=== PATIENT | male | born 2000 | race Two or more races ===

== ENCOUNTER 2024-06-10 18:08 | Emergency (ER) | payer BC, SELFPAY ==
[2024-06-10 18:10] VITALS: BMI 25.1
[2024-06-10 18:25] VITALS: BP 154/87; PULSE 76; RESP 18; TEMP 37.1; O2SAT 98; BMI 53.1
--- NOTE | 2024-06-10 18:25 | PD.EDRME ---
Rapid Medical Screening Exam [facility] Arrival date/time: 06/10/24 18:08 Chief Complaint: Abdominal Pain Time Seen by Provider: 06/10/24 18:23 RM Narrative: 23yo male presents to the ED for a chief complaint of burning epigastric pain x August of this year. Patient states his pain significantly worsened today and has been unable to urinate. He reports associated urinary urgency and lower back pain. He states he was on antibiotics, but reports they did not alleviate his symptoms, stating his pain was in my bladder but is now towards the epigastric area. Denies any fevers or weight loss.
--- NOTE | 2024-06-10 18:32 | XR_ITS ---
Examination: CT chest with intravenous contrast CT abdomen with intravenous contrast CT pelvis with intravenous contrast 2-D coronal and sagittal reconstructions Time of exam: June 10, 2024 2109 hrs. Indications: Bladder epigastric pain beginning 2 days ago CTDI: vol (mGy) : 17.15 DLP: (mGycm): 827 Technique: Multiple axial images of the chest, abdomen and pelvis with intravenous contrast, 3.0 mm slice thickness. Images obtained post intravenous injection Isovue 370 60 cc 2-D sagittal and coronal reconstructions. Low dose protocols were performed. One or more of the following dose reduction techniques were used; automated exposure control, adjustment of the mA and/or KV according to patient size, use of iterative reconstruction technique. Findings: No thoracic aortic aneurysmal dilatation Pulmonary artery segments are not enlarged No paratracheal tracheobronchial or bronchopulmonary adenopathy No pneumonia or pulmonary edema or pleural disease No liver or splenic lesion Contracted gallbladder Normal pancreas normal adrenal glands No renal or ureteral calculi, no hydronephrosis Aorta normal size Normal appendix No bowel obstruction No bladder mass or bladder wall thickening Normal prostate Intact osseous structures Impression: No acute process in the chest abdomen or pelvis Given the patient's presentation, consider hepatobiliary sonography follow-up
--- NOTE | 2024-06-10 18:35 | EKG_ITS ---
[facility] Test Date: 2024-06-10 Pat Name: ESTEFANY PANTOJA Department: Room: - Gender: Male Family Service Caseworker: : 2000 Requested By: Alie Atsudillo Order Number: [id number] Reading MD: Alie Astudillo Measurements Intervals [place] Rate: 84 P: 77 SC: 157 QRS: -9 QRSD: 97 T: 63 QT: 393 QTc: 467 Interpretive Statements SINUS RHYTHM INDETERMINATE AXIS ATYPICAL ECG No previous ECG available for comparison /store/S0/[id number]/[id number].pdf
[2024-06-10 18:51] LABS: Collection Type, Urine Voided; WBC,Urine 0 /hpf (0-5)
[2024-06-10 19:14] LABS: Lactate (Lactic Acid) 1.1 mMol/L (0.4-2.0)
[2024-06-10 19:17] LABS: Basophils # (Auto) 0.1 Thou/mm3 (0.0-0.2); Basophils % (Auto) 1 % (0-2.5); Eosinophils # (Auto) 0.3 Thou/mm3 (0.0-0.5); Eosinophils % (Auto) 3 % (0-10); Hematocrit 43.1 % (41.0-53.0); Immature Granulocytes % (Auto) 0 % (0-0); Immature Granulocytes Auto 0.02 Thou/mm3 (0.00-0.00); Lymphocytes # (Auto) 2.5 Thou/mm3 (1.0-4.8); Lymphocytes % (Auto) 27 % (10-50); Mean Corpuscular HGB Conc 34.8 g/dl (31.0-37.0); Mean Corpuscular Hemoglobin 30.4 pg (25.0-35.0); Mean Corpuscular Volume 87 fL (80-100); Monocytes # (Auto) 0.6 Thou/mm3 (0.0-0.8); Monocytes % (Auto) 7 % (0-12); Neutrophils # (Auto) 5.6 Thou/mm3 (1.8-7.7); Neutrophils % (Auto) 62 % (37-80); Nucleated Red Blood Cell % 0 /100 WBC (0); Platelet Count 273 Thou/mm3 (140-440); RDW Standard Deviation 41.1 fL (35.1-43.9); Red Blood Count 4.94 Miln/mm3 (4.50-5.90); White Blood Count 9.1 Thou/mm3 (3.8-10.6)
[2024-06-10 19:21] LABS: Bilirubin,Urine Negative (Negative); Blood,Urine Negative (Negative); Clarity,Urine Clear (Clear/Hazy); Color,Urine Lt-Yellow (Lt Yel-Yel); Culture Indicated,Urine Not Indicated; Glucose, Urine Negative (Negative); Hyaline Casts,Urine < 1 /hpf (0-1); Ketones,Urine Negative (Negative); Leukocyte Esterase,Urine Negative (Negative); Nitrite,Urine Negative (Negative); Protein,Urine Negative (Neg - Trace); RBC,Urine 1 /hpf (0-3); Specific Gravity,Urine 1.026 (1.001-1.035); Squamous Epithelial Cell,Urine 1 /hpf (0-5); Urobilinogen,Urine Negative mg/dL (0.0-1.0)
--- NOTE | 2024-06-10 19:46 | PC.NURSE ---
Addendum entered by Babs Molina RN 06/10/24 20:00: BRENT ALFORD CHAIRLIFT OPERATOR ALSO MADE AWARE. NO NEW ORDERS AT THIS TIME. Original Note: BLADDER SCAN PERFORMED; PT'S RESULT 62ML. MD TERRELL MADE AWARE.
[2024-06-10 20:03] LABS: Prostate Specific Antigen 0.53 ng/mL (0-4.00)
[2024-06-10 20:13] LABS: Alanine Aminotransferase 25 U/L (10-49); Albumin, Serum 5.5 gm/dL (3.5-5.0); Alkaline Phosphatase 68 U/L (46-116); Anion Gap 10 (7-16); Aspartate Amino Transferase 17 U/L (0-34); BUN/Creatinine Ratio 14 Ratio (12-20); Bilirubin,Total 0.4 mg/dL (0.3-1.2); Blood Urea Nitrogen 14 mg/dL (9-23); C-Reactive Protein < 0.4 mg/dL (0.0-0.9); Calcium 10.1 mg/dL (8.3-10.6); Calcium (Corrected) 10.1 mg/dL (8.5-10.1); Chloride 103 mMol/L (98-107); Estimated Creatinine Clearance 182.6 mL/min (>60); Globulin 2.7 gm/dL (2.3-3.5); Glucose 94 mg/dL (74-106); Osmolality,Calculated 276 (275-295); Sodium 138 mMol/L (136-145); Total Protein 8.2 gm/dL (5.7-8.2); eGFR > 60 See Note
--- NOTE | 2024-06-10 21:37 | XR_ITS ---
Examination: Retroperitoneal ultrasound, complete Technique: Multiple high resolution grayscale images of the retroperitoneum obtained, including kidneys and bladder. Exam date and time:June 10, 2024 1117 hrs. Indications: Urinary retention pelvic pressure 4 months Findings: Right kidney 10.5 x 6.1 x 4.7 cm renal cortex 1.3 cm Left kidney 11.2 x 6.7 x 4.6 cm cortex 2.3 cm Mild left renal parenchymal scar formation, increased arterial flow to the left kidney No hydronephrosis No bladder mass or bladder calculi Bladder prevoid volume 49 cc Prostate 4.6 x 2.6 x 3.5 cm no prostate nodules Impression: Mild renal parenchymal scar formation, mild increased arterial flow to the left kidney, consider urinary tract infection
[2024-06-10 23:40] VITALS: BP 142/88; PULSE 82; RESP 18; TEMP 37.2; O2SAT 99
--- NOTE | 2024-06-11 02:01 | PD.EDABDPN ---
ED Abdominal Pain RME/HPI General Chief Complaint: Abdominal Pain Stated complaint: EPIGASTRIC PAIN X2 DAYS Time seen by provider: 06/10/24 18:23 Arrival date/time: 06/10/24 18:08 Limitations: no limitations RME / HPI RME / HPI narrative: Dr. Manrique's Main ED Evaluation: 23yo male presents to the ED for a chief complaint of burning epigastric pain x August of this year. Patient states his pain significantly worsened today and has been unable to urinate. He reports associated urinary urgency and lower back pain. He states he was on antibiotics, but reports they did not alleviate his symptoms, stating his pain was in my bladder but is now towards the epigastric area. Denies any fevers or weight loss. Denies any N/V or any other associated symptoms. No known allergies. Related Data Allergies Allergy/AdvReac Type Severity Reaction Status Date / Time No Known Allergies Allergy Verified 06/10/24 18:09 Review of Systems Review of Systems Systems Reviewed: All systems reviewed, normal except as documented Past Medical History Past Medical History CARDIAC: Negative Cardiac Disorders RESPIRATORY: Positive Asthma GENITOURINARY: Negative Renal Disease ENDOCRINE: Negative Diabetes Mellitus Type 2 HEMATOLOGIC: Negative Sickle Cell Disease Social History SMOKING STATUS: Never smoker ED Exam General Limitations: Present no limitations General appearance: Present alert and in no apparent distress Head Head exam: Present atraumatic Eye Eye exam: Present normal appearance, PERRL and EOMI ENT ENT exam: Present normal exam, normal oropharynx and mucous membranes moist Neck Neck exam: Present normal inspection, full ROM and trachea midline Chest Chest inspection: Present normal inspection and symmetric chest wall rise Respiratory Respiratory exam: Present normal lung sounds bilaterally Cardiovascular Cardiovascular exam: Present regular rate, normal rhythm and normal heart sounds Abdominal Exam Abdominal exam: Present soft and normal bowel sounds Extremities Exam Extremities exam: Present normal inspection and full ROM Back Exam Back exam: Present normal inspection and full ROM Neurological Exam Neurological exam: Present alert, oriented X3 and CN II-XII intact Psychiatric Psychiatric exam: Present normal affect and normal mood Skin Skin exam: Present warm, dry, intact and normal color Course Quality Measures none Orders Category Date Time Status CT Screening NOW Care 06/10/24 18:32 Active EKG (ED ONLY) *Do not use* NOW Care 06/10/24 18:35 Completed Miscellaneous Nursing Order X1 Care 06/10/24 18:[address] chest abdomen pelvis w Stat Exams 06/10/24 18:32 Completed EKG (ED Only) Stat Exams 06/10/24 18:35 Draft US retroperitoneal comp Stat Exams 06/10/24 21:37 Completed CBC Stat Lab 06/10/24 19:00 Completed CMP [Comprehensive Metabolic Panel] Stat Lab 06/10/24 19:00 Completed CRP [C-Reactive Protein] Stat Lab 06/10/24 19:00 Completed Lactic Acid [Lactate (Lactic Acid)] Stat Lab 06/10/24 19:00 Completed PSA [Prostate Specific Antigen] Stat Lab 06/10/24 19:00 Completed Urinalysis, C/S if Indicated Stat Lab 06/10/24 18:42 Completed Vital Signs Vital signs: Vital Signs Temperature 98.7 F 06/10/24 18:25 Pulse Rate 76 06/10/24 18:25 Respiratory Rate 18 06/10/24 18:25 Blood Pressure 154/87 H 06/10/24 18:25 Pulse Oximetry (%) 98 06/10/24 18:25 Oxygen Delivery Method Room Air 06/10/24 18:25 Pulse ox is 98% on room air, which is normal according to my interpretation. Abdominal Pain MDM Patient data External records reviewed:: [facility] previous records (Per chart review, patient has no previous ED visits or admissions to this facility.) Clinical information provided by:: patient Social determinants that could affect healthcare access:: none Patient has the following chronic illnesses:: asthma How is presenting disease/condition affected by chronic disease/condition?: uneffected by Evaluation data The following diagnostics were reviewed and interpreted by me:: lab results and radiology exam(s) Lab and/or radiology exams considered but not ordered:: none Interpretation Summary: CBC is normal. CMP is normal, Lactic Acid is normal, UA is unremarkable, according to my interpretation. EKG done at 2158, NSR, rate of 84, normal intervals, normal axis, no ST elevations or depressions, no STEMI, according to my interpretation. ----- I have personally reviewed the radiology data and agree with the radiologist's interpretation below: [facility] Report Signed Patient: ESTEFANY PANTOJA [facility] Record#: [id number] Birthdate: 2000 Age/Sex: 23 / M Location: [facility] Attending Dr: Ordering Physician: Alie Manrique MD Date of Service: 06/10/24 Procedure(s): CT chest abdomen pelvis w Accession Number(s): [id number] cc: Kofi Balderas MD; Isacc Barr MD; Alie Manrique MD~ Examination: CT chest with intravenous contrast CT abdomen with intravenous contrast CT pelvis with intravenous contrast 2-D coronal and sagittal reconstructions Time of exam: June 10, 2024 2109 hrs. Indications: Bladder epigastric pain beginning 2 days ago CTDI: vol (mGy) : 17.15 DLP: (mGycm): 827 Technique: Multiple axial images of the chest, abdomen and pelvis with intravenous contrast, 3.0 mm slice thickness. Images obtained post intravenous injection Isovue 370 60 cc 2-D sagittal and coronal reconstructions. Low dose protocols were performed. One or more of the following dose reduction techniques were used; automated exposure control, adjustment of the mA and/or KV according to patient size, use of iterative reconstruction technique. Findings: No thoracic aortic aneurysmal dilatation Pulmonary artery segments are not enlarged No paratracheal tracheobronchial or bronchopulmonary adenopathy No pneumonia or pulmonary edema or pleural disease No liver or splenic lesion Contracted gallbladder Normal pancreas normal adrenal glands No renal or ureteral calculi, no hydronephrosis Aorta normal size Normal appendix No bowel obstruction No bladder mass or bladder wall thickening Normal prostate Intact osseous structures Impression: No acute process in the chest abdomen or pelvis Given the patient's presentation, consider hepatobiliary sonography follow-up Dictated By: Isacc Barr MD Signed By: <Electronically signed by Isacc Barr MD in [place]> 06/10/24 2453 [facility] Report Signed Patient: ESTEFANY PANTOJA [facility] Record#: [id number] Birthdate: 2000 Age/Sex: 23 / M Location: [facility] Attending Dr: Ordering Physician: Alie Manrique MD Date of Service: 06/10/24 Procedure(s): US retroperitoneal comp Accession Number(s): [id number] cc: Kofi Balderas MD; Isacc Barr MD; Alie Manrique MD~ Examination: Retroperitoneal ultrasound, complete Technique: Multiple high resolution grayscale images of the retroperitoneum obtained, including kidneys and bladder. Exam date and time:June 10, 2024 1117 hrs. Indications: Urinary retention pelvic pressure 4 months Findings: Right kidney 10.5 x 6.1 x 4.7 cm renal cortex 1.3 cm Left kidney 11.2 x 6.7 x 4.6 cm cortex 2.3 cm Mild left renal parenchymal scar formation, increased arterial flow to the left kidney No hydronephrosis No bladder mass or bladder calculi Bladder prevoid volume 49 cc Prostate 4.6 x 2.6 x 3.5 cm no prostate nodules Impression: Mild renal parenchymal scar formation, mild increased arterial flow to the left kidney, consider urinary tract infection Dictated By: Isacc Barr MD Signed By: <Electronically signed by Isacc Barr MD in OV> 06/11/24 0002 Medications / Prescriptions Medications or Prescriptions considered but not ordered:: none Medication administrations:: see above, if any Consultations Consultation(s) initiated? (list below): No Diagnosis Differential diagnosis abdominal pain: pancreatitis and other (UTI, cystitis, pyelonephritis) Most likely diagnosis given after review of the tests above:: see below Admission Indicated Admission indicated?: not indicated Admission Request Was there a request for admission?: No Disposition Plan Disposition Plan: Discharge Discharge Attestation Discharge Attestation: The patient and all family members were given an opportunity to ask questions and understood the discharge instructions. Discharge instructions specifically effects, indications for sooner follow up or return to the emergency department, and the expected course of current diagnosis. Patient condition: Stable Discharge Plan Plan Patient Disposition: HOME (Self Care) Patient condition on transfer: Stable Prescriptions/Referrals Referrals: Kofi Balderas MD [Primary Care Provider] - In 1 week Problem List Clinical Impression: Urinary bladder disorder Patient/Caregiver Discharge Instructions Education Materials: Anatomy of the Male Urinary Tract Additional Instructions: Today your CT and laboratory findings are reassuring. I have given you a copy of your ultrasound as well to take to your primary care physician, so that you can get a referral to urology if needed. Return to the Emergency Department for worsening symptoms, fever, you are unable to urinate, or any other concerns. Print Language: Peruvian Stand Alone Forms: [employer]fort Award Info., Patient Portal Info Letter
== END 2024-06-11 02:01 | disposition home or self-care (01) ==
PROVIDERS: Emergency Provider Emergency Medicine; PCP Family Medicine
DX: N32.9 Bladder disorder, unspecified (principal); N28.89 Other specified disorders of kidney and ureter; R10.13 Epigastric pain; R94.31 Abnormal electrocardiogram [ECG] [EKG]
CPT/HCPCS: 36415; 71260; 74177; 76770; 80053; 81001; 83605; 84153; 85025; 86140; 93005; 99285; A4649; Q9967